=== PATIENT | male | born 1980 | race Caucasian/White ===

== ENCOUNTER 2020-12-13 23:57 | Emergency (ER) | payer OTHER ==
[~2020-12-13] VITALS: Ht 167.6 cm; Wt 76.2 kg
[2020-12-14] MEDS ORDERED: CLON0.1D3 TD (00:16)
[2020-12-14] MEDS ORDERED: LUNE2TAB23 PO (00:16)
[2020-12-14] MEDS ORDERED: BUSP10TA PO (00:16)
[2020-12-14] MEDS ORDERED: methylPREDNISolone 125MG 2ML VIAL IV ONE (01:15)
[2020-12-14] MEDS ORDERED: MEDR4PAK PO (01:21)
[2020-12-14 02:08] VITALS: BP 159/89
== END 2020-12-14 02:09 | disposition home or self-care (01) ==
LOC: M ED 23:57
DX: R22.0 Localized swelling, mass and lump, head (principal); T81.9XXA Unspecified complication of procedure, initial encounter; X58.XXXA Exposure to other specified factors, initial encounter; Y92.89 Other specified places as the place of occurrence of the external cause; Z79.899 Other long term (current) drug therapy
CPT/HCPCS: 96374; 99284; J2930

== ENCOUNTER 2021-01-29 12:22 | Emergency (ER) | payer OTHER ==
[~2021-01-29] VITALS: Ht 167.6 cm; Wt 74.1 kg
[2021-01-29 12:22] VITALS: BP 132/75
[~2021-01-29 12:22] MED LIST: BUSP10TA PO; CLON0.1D3 TD; LUNE2TAB23 PO; MEDR4PAK PO
[2021-01-29] MEDS ORDERED: BACT800T5 PO (13:57)
[2021-01-29 14:00] LABS: BASO # 0.1 10^3/uL (0.0-0.2); BASO % 0.8 % (0.0-1.0); EOS # 0.2 10^3/uL (0.0-0.5); EOS % 2.5 % (0.0-3.0); HEMATOCRIT 49.5 % (42.0-52.0); HEMOGLOBIN 15.1 g/dl (13.5-17.5); LYMPH # 1.3 10^3/uL (1.5-5.0); LYMPH % 22.3 % (24.0-44.0); MEAN CORPUSCULAR HEMOGLOBIN 22.1 pg (27.0-33.0); MEAN CORPUSCULAR HGB CONC 30.5 g/dl (32.0-36.5); MEAN CORPUSCULAR VOLUME 72.6 fl (80.0-96.0); MONO # 0.6 10^3/uL (0.0-0.8); MONO % 10.3 % (2.0-8.0); NEUTROPHILS # 3.8 10^3/uL (1.5-8.5); NEUTROPHILS % 63.9 % (36.0-66.0); PLATELET COUNT, AUTOMATED 354 10^3/uL (150-450); RED BLOOD COUNT 6.82 10^6/uL (4.30-6.10)
[2021-01-29 15:05] LABS: ERYTHROCYTE SEDIMENTATION RATE 1 mm/hr (0-15)
== END 2021-01-29 14:27 | disposition home or self-care (01) ==
LOC: M ED 12:22
DX: T81.30XA Disruption of wound, unspecified, initial encounter (principal); Y92.89 Other specified places as the place of occurrence of the external cause; Z88.0 Allergy status to penicillin